=== PATIENT | male | born 1950 | race Caucasian/White ===

== ENCOUNTER 2018-12-28 15:51 | Emergency (ER) | payer OTHER, MEDICAID ==
[~2018-12-28] VITALS: Ht 160 cm; Wt 66.7 kg
[2018-12-28 15:54] VITALS: BP 181/102
--- NOTE | 2018-12-28 16:03 | NUR ---
PT AMBULATED TO BED 11
--- NOTE | 2018-12-28 16:05 | NUR ---
68 Y MALE BIB FAMILY C/O A SMALL PIECE OF METAL PENETRATED TO LEFT INDEX FINGER X TODAY. LACERATION APPROX 1 CM. BLEEDING IN CONTROL. CAN'T RECALL LAST TDAP. BP 181/102. ACCU CHECK 115. PAIN 10. 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 NO ARM DRIFT OR FACIAL DROOPING. AA0X4. NAMIBIAN SPEAKING. FAMILY TRANSLATING. BED IS DOWN, LOCKED, BED RAIL X 1, ERMD TO SEE PT. MED HX: DM, HTN, HIGH CHOLESTEROL, STROKE LEFT SIDED
--- NOTE | 2018-12-28 16:08 | NUR ---
DR JENKINS AND DR RUIZ AT BEDSIDE FOR PT EVALUATION
[2018-12-28] MEDS ORDERED: HYDROcodone/APAP 5/325 MG 1 TAB TAB PO ONE (16:10)
[2018-12-28] MEDS ORDERED: cefTRIAXone 1,000 MG in LIDOCAINE 1% ***ER ONLY *** 2.1 ML IM ONE (16:10)
--- NOTE | 2018-12-28 16:12 | NUR ---
X RAY AT BEDSIDE
[2018-12-28] MEDS ORDERED: cefTRIAXone 1,000 MG VIAL ONE (16:26)
[2018-12-28] MEDS ORDERED: LIDOCAINE MPF 1% 5mL VIAL ONE (16:27)
--- NOTE | 2018-12-28 16:34 | NUR ---
DR WEN AT BEDSIDE FOR PT RE-EVALUATION
--- NOTE | 2018-12-28 16:45 | NUR ---
WOUND CARE PERFORMED BY LEONIE PLEITEZ AND STERI STRIP APPLIED.
[2018-12-28 16:48] VITALS: BP 167/91
--- NOTE | 2018-12-28 16:48 | NUR ---
Patient discharged with v/s stable. Written and verbal after care instructions given and explained. Patient alert, oriented and verbalized understanding of instructions. Ambulatory with steady gait. All questions addressed prior to discharge. ID band removed. Patient advised to follow up with PMD. Rx of IBUPROFEN, KEFLEX given. Patient educated on indication of medication including possible reaction and side effects. Opportunity to ask questions provided and answered.
== END 2018-12-28 16:48 | disposition home or self-care (01) ==
LOC: MED 15:51
DX: S61.211A Laceration without foreign body of left index finger without damage to nail, initial encounter (principal); E11.9 Type 2 diabetes mellitus without complications; I10 Essential (primary) hypertension; E78.5 Hyperlipidemia, unspecified; W45.8XXA Other foreign body or object entering through skin, initial encounter; Y93.89 Activity, other specified; Y92.89 Other specified places as the place of occurrence of the external cause; Y99.8 Other external cause status
CPT/HCPCS: 12001; 73140; 82948; 90471; 90715; 96372; 99283; J0696; J2001